=== PATIENT | male | born 1945 | race Two or more races ===

== ENCOUNTER 2019-08-03 16:21 | Emergency (ER) | payer MEDICARE, OTHER ==
[~2019-08-03] VITALS: Ht 170.2 cm; Wt 81.6 kg
[2019-08-03] MEDS ORDERED: LIDOCAINE 5% (PATCH) 1 EA PATCH TP SCH (17:00)
[2019-08-03] MEDS ORDERED: CYCLOBENZAPRINE 10 MG TABLET PO ONE (17:00)
[2019-08-03] MEDS ORDERED: CYCLOBENZAPRINE 10 MG TABLET ONE (17:00)
[2019-08-03] MEDS ORDERED: KETOROLAC TROMETHAMINE INJ 30 MG/ML VIAL ONE (17:00)
[2019-08-03] MEDS ORDERED: KETOROLAC TROMETHAMINE INJ 60 MG/2 ML VIAL IM ONE (17:00)
--- NOTE | 2019-08-03 17:00 | NUR ---
lower back pain r/t rle x 1 week worst since yesterday. Patient a/ox4, breathing even and unlabored, no sob noted, needs attended.
--- NOTE | 2019-08-03 17:11 | NUR ---
Patient discharged to home in stable condition. Written and verbal after care instructions given. Patient verbalizes understanding of instruction.
[2019-08-03 17:17] VITALS: BP 133/74
== END 2019-08-03 17:17 | disposition home or self-care (01) ==
LOC: ER 16:36
DX: M54.41 Lumbago with sciatica, right side (principal); I10 Essential (primary) hypertension; E11.9 Type 2 diabetes mellitus without complications
CPT/HCPCS: 96372; 99283; J1885